=== PATIENT | male | born 1930 | race Caucasian/White ===

== ENCOUNTER → 2016-12-23 | Day surgery (SDC) | payer OTHER, MEDICARE ==
[~2016-12-23] VITALS: Ht 172.7 cm; Wt 72.6 kg
[~2016-12-23] MED LIST: AMLODIPINE BESY10 M1 PO; ASPIRIN EC81 M1 PO; HYDRALAZINE HCL25 M1 PO; PRESERVISION A1 EAC1 PO; SIMVASTATIN20 M2 PO
== END ==
LOC: STS 00:54
DX: C44.212 Basal cell carcinoma of skin of right ear and external auricular canal (principal); C44.519 Basal cell carcinoma of skin of other part of trunk; C44.311 Basal cell carcinoma of skin of nose; Z85.46 Personal history of malignant neoplasm of prostate; Z85.528 Personal history of other malignant neoplasm of kidney; I10 Essential (primary) hypertension
CPT/HCPCS: 88305; 88331; 88332; J0131; J0690; J2250